=== PATIENT | male | born 1995 | race Caucasian/White ===

== ENCOUNTER 2021-11-05 12:37 | Outpatient (CLI) | payer OTHER, SELFPAY ==
--- NOTE | 2021-11-05 13:00 | XRR_ITS ---
PROCEDURE INFORMATION: Exam: XR Chest Exam date and time: 11/05/2021 1:01 PM Age: 26 years old Clinical indication: Screening exam; Pre-employment physical; Prior surgery; Surgery type: Port a cath; Additional info: Regulated program monitoring TECHNIQUE: Imaging protocol: XR of the chest. Views: 2 views. COMPARISON: No relevant prior studies available. FINDINGS: Lungs: Unremarkable. No consolidation. Pleural spaces: Unremarkable. No pleural effusion. No pneumothorax. Heart/Mediastinum: Unremarkable. No cardiomegaly. Bones/joints: Unremarkable. XR/XR chest 2V* [id number] IMPRESSION: Normal chest x-ray.
== END 2021-11-05 12:38 | disposition home or self-care (01) ==
LOC: RAD 12:38
PROVIDERS: Family Provider Internal Medicine; Visit Provider Preventive Medicine Occupational Medicine
DX: Z13.6 Encounter for screening for cardiovascular disorders (principal)
CPT/HCPCS: 71046

== ENCOUNTER → 2022-04-25 14:59 | Outpatient (BNVA) | payer OTHER, SELFPAY | PROVIDERS: Family Provider Internal Medicine; Visit Provider Emergency Medicine | DX: M79.671 Pain in right foot (principal) | CPT/HCPCS: 73630 ==

== ENCOUNTER 2022-08-20 08:01 | Outpatient (CLI) | payer OTHER, SELFPAY ==
--- NOTE | 2022-08-20 | XR_ITS ---
WS: [id number] Chest 2 views, 08/20/2022 Clinical Data: Regulated Program Monitoring Comparison: PA and lateral chest, 11/05/2021 Findings: No nodules, masses or effusions are seen. The heart is normal. The pulmonary vascularity is not increased. No pneumonia or pneumothorax is seen. XR/XR chest 2V* [id number] Impression: Negative chest.
== END 2022-08-20 08:02 | disposition home or self-care (01) ==
PROVIDERS: Visit Provider Preventive Medicine Occupational Medicine
DX: Z13.6 Encounter for screening for cardiovascular disorders (principal)
CPT/HCPCS: 71046

== ENCOUNTER 2024-10-09 08:50 | Emergency (ER) | payer OTHER, SELFPAY ==
[2024-10-09 09:06] VITALS: PULSE 75; RESP 16; O2SAT 97; BMI 40.2
--- NOTE | 2024-10-09 09:12 | XRR_ITS ---
PROCEDURE INFORMATION: Exam: XR Right Ankle Exam date and time: 10/09/2024 9:31 AM Age: 29 years old Clinical indication: Injury or trauma; Fall; Blunt trauma; Ankle and foot; Right; Additional info: Fall / foot injury TECHNIQUE: Imaging protocol: Radiologic exam of the right ankle. Views: 3 or more views. COMPARISON: CR XR foot RT min 3V* [id number] 06/30/2023 8:49 AM FINDINGS: Bones/joints: The ankle mortise is intact. No acute fracture. No dislocation. Soft tissues: Mild soft tissue swelling of the right ankle. PROCEDURE INFORMATION: Exam: XR Right Foot Exam date and time: 10/09/2024 9:31 AM Age: 29 years old Clinical indication: Injury or trauma; Fall; Blunt trauma; Ankle and foot; Right; Additional info: Fall / foot injury TECHNIQUE: Imaging protocol: Radiologic exam of the right foot. Views: 3 or more views. COMPARISON: CR XR foot RT min 3V* [id number] 06/30/2023 8:49 AM FINDINGS: Bones/joints: No acute fracture. No dislocation. Soft tissues: No significant soft tissue swelling of the right foot. XR/XR foot RT min 3V* [id number] IMPRESSION: No acute fracture or dislocation. Mild soft tissue swelling of the right ankle.
--- NOTE | 2024-10-09 09:15 | XRR_ITS ---
PROCEDURE INFORMATION: Exam: XR Right Ankle Exam date and time: 10/09/2024 9:31 AM Age: 29 years old Clinical indication: Injury or trauma; Fall; Blunt trauma; Ankle and foot; Right; Additional info: Fall / foot injury TECHNIQUE: Imaging protocol: Radiologic exam of the right ankle. Views: 3 or more views. COMPARISON: CR XR foot RT min 3V* [id number] 06/30/2023 8:49 AM FINDINGS: Bones/joints: The ankle mortise is intact. No acute fracture. No dislocation. Soft tissues: Mild soft tissue swelling of the right ankle. PROCEDURE INFORMATION: Exam: XR Right Foot Exam date and time: 10/09/2024 9:31 AM Age: 29 years old Clinical indication: Injury or trauma; Fall; Blunt trauma; Ankle and foot; Right; Additional info: Fall / foot injury TECHNIQUE: Imaging protocol: Radiologic exam of the right foot. Views: 3 or more views. COMPARISON: CR XR foot RT min 3V* [id number] 06/30/2023 8:49 AM FINDINGS: Bones/joints: No acute fracture. No dislocation. Soft tissues: No significant soft tissue swelling of the right foot. XR/XR ankle RT min 3V* [id number] IMPRESSION: No acute fracture or dislocation. Mild soft tissue swelling of the right ankle.
[2024-10-09 09:16] VITALS: BP 156/88
--- NOTE | 2024-10-09 09:59 | ED_ITS ---
HPI - Extremity Problem General: Chief complaint: Extremity Injury, Lower Stated complaint: rt leg injury Time Seen by Provider: 10/09/24 09:06 History of Present Illness: 29-year-old man who presents to the [facility] room with a fall. He slipped and fell on the snow last night and feels like he felt a pop in his ankle. He is able to bear weight on the heel but not another parts. This is secondary to pain. No obvious bruising or swelling. No deformity. Neurovascularly intact. No other injuries. No head injury. No loss of consciousness. Related Data Previous Rx's ?Medication ?Instructions ?Recorded loperamide 2 mg capsule 2 mg PO Q6H PRN loose stool #14 11/04/22 caps ondansetron HCl 4 mg tablet 4 mg PO Q6H PRN nausea and 11/04/22 vomiting #14 tabs diclofenac sodium 50 mg 50 mg PO BID PRN pain #14 ta bs 10/09/24 tablet,delayed release Allergies Allergy/AdvReac Type Severity Reaction Status Date / Time No Known Allergies Allergy Verified 11/04/22 09:33 Review of Systems Narrative: Constitutional symptoms: Negative except as documented in HPI. Skin symptoms: Negative except as documented in HPI. Eye symptoms: Negative except as documented in HPI. ENMT symptoms: Negative except as documented in HPI. Respiratory symptoms: Negative except as documented in HPI. Cardiovascular symptoms: Negative except as documented in HPI. Gastrointestinal symptoms: Negative except as documented in HPI. Genitourinary symptoms: Negative except as documented in HPI. Musculoskeletal symptoms: Negative except as documented in HPI. Neurologic symptoms: Negative except as documented in HPI. Psychiatric symptoms: Negative except as documented in HPI. Endocrine symptoms: Negative except as documented in HPI. PFSH ED PFSH: Social History Smoking and tobacco/nicotine status: never used tobacco/nicotine Alcohol intake: current Alcohol intake frequency: few times a month Alcohol type: beer and hard liquor Substance/Drug Use: never Special pamella needs: No Physical Exam Narrative: EXAM NARRATIVE: General: Alert, no acute distress. Skin: warm and dry Head: Normocephalic Neck: Trachea midline Eye: Extraocular movements are intact. Ears, nose, mouth and throat: Oral mucosa moist Respiratory: Respirations are non-labored Musculoskeletal: Normal ROM. No obvious bruising or swelling. No deformity. Neurovascularly intact. Neurological: Alert and oriented, No focal neurological deficit observed. Psychiatric: Cooperative, appropriate mood & affect. Course Vital Signs: Vital signs: Vital Signs Pulse Rate 69 10/09/24 10:30 Respiratory Rate 16 10/09/24 09:06 Blood Pressure 155/78 10/09/24 10:30 Pulse Oximetry 94 10/09/24 10:30 Oxygen Delivery Me thod Room Air 10/09/24 09:06 MDM - Extremity (Nontraumatic) Medical Decision Making X-ray of the right foot: No obvious deformities. No dislocations. No swelling. This was reviewed and interpreted by myself the emergency room physician. I also reviewed the radiology report. X-ray of the right ankle: No obvious fractures or dislocations. This was reviewed and interpreted by myself the emergency room physician. I also reviewed the radiology report. Assessment and plan: Ankle strain/sprain - Discharged home - Discussed plan with patient. Answered any questions. - Evaluation and treatment of this problem were appropriate in the emergency setting. Lab Data Radiology Impressions Foot X-Ray 10/09/24 09:12 IMPRESSION: No acute fracture or dislocation. Mild soft tissue swelling of the right ankle. IMPRESSION: No acute fracture or dislocation. Ankle X-Ray 10/09/24 09:15 IMPRESSION: No acute fracture or dislocation. Mild soft tissue swelling of the right ankle. IMPRESSION: No acute fracture or dislocation. All radiology interpretation(s) finalized by discharge Discharge Plan Discharge Patient Disposition: Home Clinical Impression: Ankle sprain and strain Condition: Stable Prescriptions: New diclofenac sodium 50 mg tablet,delayed release (DR/EC) 50 mg PO BID PRN (Reason: pain) Qty: 14 0RF No Action ondansetron HCl 4 mg tablet 4 mg PO Q6H PRN (Reason: nausea and vomiting) Qty: 14 0RF loperamide 2 mg capsule 2 mg PO Q6H PRN (Reason: loose stool) Qty: 14 0RF Discharge Orders: Discharge ED (Routine); Ordered 10/09/24 Ordered By: Namrata Ball Discharge Diet: Usual diet Discharge Activity: Increase activity as tolerated Patient Instructions: Ankle Strain (ED), Opioid Safety, Pain Management Activity Restrictions/Additional Instructions: Thank you for choosing [facility] for your healthcare needs today. Please realize this is an emergency room and that we are providing you with a medical screening exam and this may not be complete and all inclusive of all the testing and or work up that you may need to determine your ailment or severity of your illness. You have been screened and evaluated and felt safe for discharge. Health conditions do change or evolve sometimes and as such it is important that you follow up with your Primary Doctor to be re checked, 3-5 days is a general good time frame for follow up. 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
[2024-10-09 10:30] VITALS: BP 155/78; PULSE 69; O2SAT 94
== END 2024-10-09 10:31 | disposition home or self-care (01) ==
PROVIDERS: Emergency Provider Emergency Medicine
DX: S93.401A Sprain of unspecified ligament of right ankle, initial encounter (principal); W00.0XXA Fall on same level due to ice and snow, initial encounter
CPT/HCPCS: 73610; 73630; 99283